=== PATIENT | male | born 1975 | race Caucasian/White ===

== ENCOUNTER 2019-09-21 11:33 | Emergency (ER) | payer OTHER ==
[~2019-09-21] VITALS: Ht 180.3 cm; Wt 73.0 kg
[2019-09-21] MEDS ORDERED: QUETIAPINE FUM100 MG PO (11:56)
[2019-09-21] MEDS ORDERED: CLEOCIN HCL150 MG PO (11:57)
[2019-09-21] MEDS ORDERED: BACTRIM DS TAB1 EAC1 PO (11:57)
[2019-09-21] MEDS ORDERED: IBUPROFEN 800800 M1 PO (11:57)
[2019-09-21 13:00] VITALS: BP 128/82
== END 2019-09-21 14:18 | disposition home or self-care (01) ==
LOC: M.ERS 11:33
DX: L70.0 Acne vulgaris (principal); F22 Delusional disorders; F41.9 Anxiety disorder, unspecified; F17.210 Nicotine dependence, cigarettes, uncomplicated

== ENCOUNTER 2019-10-14 16:25 | Emergency (ER) | payer OTHER ==
[~2019-10-14] VITALS: Ht 180.3 cm; Wt 72.6 kg
[~2019-10-14 16:25] MED LIST: BACTRIM DS TAB1 EAC1 PO; CLEOCIN HCL150 MG PO; IBUPROFEN 800800 M1 PO; QUETIAPINE FUM100 MG PO
[2019-10-14 16:54] LABS: ABSOLUTE LYMPHOCYTES 1.5 thou/uL (0.8-5.3); ABSOLUTE MONOCYTES 0.3 thou/uL (0.0-1.2); ABSOLUTE NEUTROPHILS 1.3 thou/uL (1.6-8.1); BASOPHILS 0.5 %; EOSINOPHILS 1.3 %; HEMATOCRIT 38.6 % (42.0-52.0); HEMOGLOBIN 13.2 gm/dL (14.0-18.0); LYMPHOCYTES 46.4 %; MCH 31.8 pg (26.0-34.0); MCHC 34.1 g/dL (28.0-37.0); MCV 93.1 fL (80.0-100.0); MONOCYTES 9.6 %; MPV 6.6 fl. (7.2-11.1); NUCLEATED RBCS 0 /100WBC; PLATELET COUNT* 255 thou/uL (150-400); POLYS 42.2 %; RBC 4.15 mil/uL (4.50-6.00); RDW-CV 13.3 % (10.5-14.5); WBC 3.2 thou/uL (4.0-11.0)
[2019-10-14 17:03] LABS: POTASSIUM 3.3 mmol/L (3.5-5.1)
--- NOTE | 2019-10-14 17:17 | EKG ---
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 : 1975 Requested By: Best Hussein Order Number: [id number] Had[place] MD: Brian Cabello Measurements Intervals [place] Rate: 61 P: 31 CT: 140 QRS: -24 QRSD: 107 T: 29 QT: 437 QTc: 441 Interpretive Statements Sinus rhythm Borderline left axis deviation Baseline wander in lead(s) I,II,aVR No previous ECG available for comparison Electronically Signed On 10-14-2019 17:17:31 CDT by Brian Cabello [email or web address] <ELECTRONICALLY SIGNED> By: Brian Cabello MD, [facility] 10/14/19 1717 33 163 Brian Cabello MD, FACC /EPI
[2019-10-14 17:20] LABS: ALBUMIN 3.2 g/dL (3.4-5.0); CALCIUM 7.2 mg/dL (8.5-10.1); CREATININE 0.9 mg/dL (0.6-1.3); TOTAL BILIRUBIN 0.5 mg/dL (<0.1-1.0); TOTAL PROTEIN 6.9 g/dL (6.4-8.2)
[2019-10-15 03:27] VITALS: BP 107/69
== END 2019-10-15 03:27 | disposition still patient (30) ==
LOC: M.ERS 16:25
PROVIDERS: Emergency Medicine Emergency Medical Services
DX: F10.129 Alcohol abuse with intoxication, unspecified (principal); F41.9 Anxiety disorder, unspecified; Z91.030 Bee allergy status; Z88.0 Allergy status to penicillin; Y90.8 Blood alcohol level of 240 mg/100 ml or more